=== PATIENT | male | born 1970 | race Hispanic/Latino ===

== ENCOUNTER 2016-05-08 19:10 | Emergency (ER) | payer OTHER ==
[~2016-05-08] VITALS: Ht 165.1 cm; Wt 93.0 kg
[~2016-05-08 19:10] MED LIST: CIPRO500 M1 PO; CIPROFLOXACIN500 MG PO; DEXTROAMP-AMPHE20 M1 PO; FENOFIBRIC ACI135 M1 PO; FLAGYL 25O MG250 M1 PO; FLAGYL500 MG PO; PERCOCET 5-3251 EACH PO; TRAMADOL HCL50 M1 PO; ZOFRAN4 M2 PO
--- NOTE | 2016-05-08 19:56 | ED CARDIAC/CP/PALPITATIONS ---
History of Present Illness General Chief Complaint: Chest Pain Stated Complaint: CP Source: patient Exam Limitations: no limitations Vital Signs & Intake/Output Vital Signs & Intake/Output Vital Signs Date Time Temp Pulse Resp B/P Pulse O2 O2 Flow FiO2 Ox Delivery Rate 05/08 2233 96.6 64 17 141/64 96 Room Air 05/08 2155 96.5 63 18 146/68 96 Room Air 05/09 1999 Room Air 05/08 1924 98.6 72 22 160/105 98 Room Air ED Intake and Output 05/09 0000 05/08 1200 Intake Total Output Total Balance Patient 205 lb Weight Allergies Coded Allergies: NO KNOWN ALLERGIES (10/30/13) Reconcile Medications CIPROFLOXACIN HCL (Ciprofloxacin HCl) 500 MG TABLET 1 TAB PO BID diverticulitis Ciprofloxacin HCl (Cipro) 500 MG TABLET 1 TAB PO BID DIVERTICULITIS Dextroamphetamine/Amphetamine (Dextroamp-Amphet ER 20 MG Cap) 20 MG CAP.ER.24H 1 CAP PO QAM ADHD (Reported) Fenofibric Acid (Choline) (Fenofibric Acid) 135 MG CAPSULE.DR 1 CAP PO DAILY TRIGLYCERIDES (Reported) Metronidazole (Flagyl 25O MG Tablet) 250 MG TABLET 1 TAB PO 4 TIMES/DAY DIVERTICULITIS Metronidazole (Flagyl) 500 MG TABLET 1 TAB PO 4 TIMES/DAY DIVERTICULITIS Ondansetron HCl (Zofran) 4 MG TABLET 1 TAB PO Q6-8P PRN NAUSEA Oxycodone HCl/Acetaminophen (Percocet 5-325 MG Tablet) 5 MG-325 MG TABLET 1 TAB PO TID PRN PAIN Tramadol HCl 50 MG TABLET 1 TAB PO BID PAIN (Reported) Triage Note: PER PT CHEST PAIN X 72 HRS, ASSOC WITH FLUTTERING AND SOME PIEDRA. NO DIAPHORESIS OR NAUSEA. Triage Nurses Notes Reviewed? yes Onset: Abrupt Duration: day(s): (FEW), intermittent Timing: recent history Quality/Severity: moderate, severe, sharp Location: central HPI: 46-year-old male comes into emergency room with complaints of intermittent chest fluttering sensation is been going on for the past few days. Patient reports that the symptoms started this past Friday with some nausea. Patient reports that he's been having some diaphoresis intermittently as well. She reports that starting on Friday he started to get some feelings of fluttering in his chest that would last for seconds and then would BE followed with diaphoresis and shortness of breath and nausea. Denies any actual chest pain. Denies any fever. Nothing seems to make the symptoms better. Exertion makes symptoms worse. Denies any other associated symptoms. (FRANCES DIAZ) Past History Travel History Traveled to [place] past 21 day No Medical History Any Pertinent Medical History? see below for history Neurological: NONE EENT: NONE Cardiovascular: hyperlipidemia Respiratory: asthma, PNEMOTHORAX 2009 Gastrointestinal: diverticulitis Hepatic: NONE Renal: NONE Musculoskeletal: NONE Psychiatric: NONE Endocrine: NONE History of MRSA: No History of VRE: No History of CDIFF: No Surgical History Surgical History: non-contributory Psychosocial History Who do you live with Spouse Services at Home None What is your primary language Hebrew Tobacco Use: Never used Family History Hx Contributory? No (FRANCES DIAZ) Review of Systems Review of Systems Constitutional: Reports: no symptoms. EENTM: Reports: no symptoms. Respiratory: Reports: see HPI. Cardiovascular: Reports: see HPI. GI: Reports: see HPI. Genitourinary: Reports: no symptoms. Musculoskeletal: Reports: no symptoms. Skin: Reports: no symptoms. Neurological/Psychological: Reports: no symptoms. Hematologic/Endocrine: Reports: no symptoms. Immunologic/Allergic: Reports: no symptoms. All Other Systems: Reviewed and Negative (FRANCES DIAZ) Physical Exam Physical Exam General Appearance: well developed/nourished, no apparent distress, alert Head: atraumatic, normal appearance Eyes: Bilateral: normal appearance, EOMI. Ears, Nose, Throat: normal pharynx, normal ENT inspection, hearing grossly normal Neck: normal inspection, full range of motion Respiratory: normal breath sounds, no respiratory distress Cardiovascular: regular rate/rhythm Back: normal inspection Extremities: normal inspection, normal range of motion Neurologic/Psych: awake, alert, oriented x 3, normal gait, normal mood/affect Skin: intact, normal color Core Measures ACS in differential dx? No Severe Sepsis Present: No Septic Shock Present: No All Positive = PERC Ruled Out: Positive: age < 50 years, heart rate < 100 bpm, O2 sat > 94%, no hemoptysis, no hormone use, no prior DVT or PE, no unilateral leg swellin, no surgery/trauma w/ in 4w. Wells Criteria Score: 0 (FRANCES DIAZ) Progress Differential Diagnosis: AMI, aortic dissection, cholecystitis, CHF/pulm edema, hyperkalemia, hyperventilation, intracranial hemorrhage, musculoskeletal pain, myocarditis, pancreatitis, pericarditis, pneumonia, pneumothorax, pulmonary embolism, PUD/GERD, PVCs/PACs, respiratory failure, rib fracture, sepsis, unstable angina, V-fib/V-Tach, WPW syndrome Plan of Care: Orders Procedure Date/time Status TROPONIN LEVEL 05/08 2329 Complete EKG 05/08 2329 Active Telemetry/Driver'S Education Instructor 05/08 1942 Active TROPONIN LEVEL 05/08 1924 Complete COMPREHENSIVE METABOLIC PANEL 05/08 1924 Complete CBC WITHOUT DIFFERENTIAL 05/08 1924 Complete B-TYPE NATRIURETIC PEP (BNP) 05/08 1924 Complete EKG 05/08 1910 Active Laboratory Tests 05/08/162333: Troponin I < 0.01 05/08/161919: Anion Gap 11, Estimated GFR > 60, BUN/Creatinine Ratio 15.0, Glucose 81, Calcium 9.5, Total Bilirubin 0.6, AST 59, ALT 66, Alkaline Phosphatase 68, Troponin I < 0.01, [id number] Pept 80.6, Total Protein 7.3, Albumin 4.3, Globulin 3.0, Albumin/Globulin Ratio 1.4, CBC w Diff NO MAN DIFF REQ, RBC 5.32, MCV 88.8, MCH 29.3, RDW 12.8, MPV 8.4, Gran % 58.3, Lymphocytes % 29.5, Monocytes % 9.6 H, Eosinophils % 2.2, Basophils % 0.4, Absolute Granulocytes 5.7, Absolute Lymphocytes 2.9, Absolute Monocytes 0.9 H, Absolute Eosinophils 0.2, Absolute Basophils 0, PUBS MCHC 33.0 Diagnostic Imaging: Viewed by Me: Radiology Read. Discussed w/RAD: Radiology Read. Radiology Impression: SERVICE DATE: 05/08/16-1924 EXAM TYPE: RAD - XRY-CHEST XRAY, PA AND LATERAL EXAMINATION: XR CHEST CLINICAL INFORMATION: Chest pain COMPARISON: CT abdomen pelvis 01/17/2016. TECHNIQUE: 2 views. FINDINGS: Volume loss of left hemithorax with mediastinal shift to left. This is similar to the CT study 01/17/2016 of abdomen and pelvis. Density at the left lung base is likely due to the cardiac silhouette shifted to the left but underlying infiltrate not excluded. There is soft tissue density the capsule left lung apex which could be effusion or pleural thickening. The right lung is clear. No pulmonary vascular congestion. Fusion of posterior right ribs 6 through 9. IMPRESSION: Volume loss of left hemithorax with mediastinal shift to left. Pleural thickening or effusion at the left lung apex. Left basilar infiltrate not excluded. CT chest could be helpful for further assessment. DICTATED BY: DEE KIM MD DATE/TIME DICTATED:05/08/162031 HUMAN RESOURCES FILE CLERK:COLLIN DATE/TIME TRANSCRIBED:05/08/162031 Initial ED EKG: normal intervals, normal p-waves, normal sinus rhythm, rate (72) , nonspecific ST T wave chg Repeat EKG: unchanged Comments: 05/09/2016 12:26:31 AM Patient clinically looks well. Nontoxic-appearing. Patient reports that his lungs look like this normally. He was born like this. Patient normally has a mediastinal shift. No chest pain here in the emergency room. No signs of dysrhythmia. Patient needs outpatient cardiology workup. 2 unchanged EKGs. 2 normal troponins. No concern for PE . Patient ruled out based on Kings criteria. Patient has been sleeping comfortably in the room upon multiple re- evaluations. Patient understands and agrees with plan of care. (DAVID FLOREZ,FRANCES) Departure Departure Disposition: HOME OR SELF CARE Condition: Stable Clinical Impression Primary Impression: Fluttering sensation of heart Referrals: CORBIN ROMO (PCP/Family) CHERYL ANDERSON,VICKI [place] Additional Instructions: Follow-up with service order clerk provided. You may require a full cardiac workup such as Holter monitor or echocardiogram and stress test. Please return to the emergency room immediately if any chest pain or any worsening symptoms. Please go over all results of today's visit with your primary care doctor. Contact your primary care doctor to let them know you were here in the emergency room. There may be nonspecific findings which may not be related to your visit today here in the emergency room but may require further evaluation and chronic monitoring by your primary care doctor. If you had a laceration today the chance of foreign body always remains. You should follow-up with your primary care doctor for recheck in 3-5 days for a wound check. If you had an x-ray done there is a chance that a fracture could have been missed on initial read and you should follow-up with your primary care doctor for repeat x-rays if symptoms persist. If your blood pressure was elevated here in the emergency room please have rechecked by her primary care doctor within the next 48 hours by your primary care doctor. If you were prescribed a narcotic here in the emergency room or any type of controlled substances you're not allowed to drive while taking this medication or operate any type of heavy machinery. Narcotics can make you feel lightheaded dizziness nausea and can cause constipation. You may need to pick up operator a stool softener. Thank you for choosing [facility] emergency room. Please return to the emergency room immediately if you have any other concerns worsening of symptoms. Departure Forms: Customer Survey General Discharge Information (FRANCES DIAZ) PA/SHUTTLE SPOTTER Co-Sign Statement Statement: ED Attending supervision documentation- [] I saw and evaluated the patient. I have also reviewed all the pertinent lab results and diagnostic results. I agree with the findings and the plan of care as documented in the PA's/SHUTTLE SPOTTER's documentation. [x] I have reviewed the ED Record and agree with the PA's/SHUTTLE SPOTTER's documentation. [] Additions or exceptions (if any) to the PAs/SHUTTLE SPOTTER's note and plan are summarized below: [] (LEXI ANDERSON,MICHAEL Tobin) Critical Care Note Critical Care Note Critical Care Time: non-applicable (FRANCES DIAZ)
[2016-05-08 20:00] LABS: ABSOLUTE BASOPHIL COUNT 0 /CUMM (0.0-0.2); ABSOLUTE EOSINOPHIL COUNT 0.2 /CUMM (0.0-0.7); ABSOLUTE GRANULOCYTE CT 5.7 /CUMM (1.4-6.5); ABSOLUTE LYMPH COUNT 2.9 /CUMM (1.2-3.4); ABSOLUTE MONOCYTE COUNT 0.9 /CUMM (0.10-0.60); BASOPHIL % 0.4 % (0.0-2.0); EOSINOPHIL % 2.2 % (0-5); GRANULOCYTE % 58.3 % (42.2-75.2); HEMATOCRIT 47.3 % (42-52); MEAN CORPUSCULAR HGB 29.3 PG (27.0-31.0); MEAN CORPUSCULAR VOLUME 88.8 FL (80.0-94.0); MEAN PLATELET VOLUME 8.4 FL (7.4-10.4); PLATELET COUNT 256 /CUMM (130-400); RBC DISTRIBUTION WIDTH 12.8 % (11.5-14.5); RED BLOOD CELL CT 5.32 /CUMM (4.70-6.10); WHITE BLOOD CELL COUNT 9.8 /CUMM (4.8-10.8)
--- NOTE | 2016-05-08 20:40 | RADIOLOGY REPORT ---
EXAMINATION: XR CHEST CLINICAL INFORMATION: Chest pain COMPARISON: CT abdomen pelvis 01/17/2016. TECHNIQUE: 2 views. FINDINGS: Volume loss of left hemithorax with mediastinal shift to left. This is similar to the CT study 01/17/2016 of abdomen and pelvis. Density at the left lung base is likely due to the cardiac silhouette shifted to the left but underlying infiltrate not excluded. There is soft tissue density the capsule left lung apex which could be effusion or pleural thickening. The right lung is clear. No pulmonary vascular congestion. Fusion of posterior right ribs 6 through 9. IMPRESSION: Volume loss of left hemithorax with mediastinal shift to left. Pleural thickening or effusion at the left lung apex. Left basilar infiltrate not excluded. CT chest could be helpful for further assessment.
--- NOTE | 2016-05-08 21:49 | CT SCAN REPORT ---
EXAMINATION: CT CHEST WITHOUT CONTRAST CLINICAL INFORMATION: Abnormal chest x-ray. CT chest requested for further assessment. COMPARISON: Chest x-ray today. CT abdomen pelvis 01/17/2016 TECHNIQUE: Multidetector volumetric CT imaging of the chest was done. Axial MIP volume rendering provided. Sagittal and coronal reformatted images were obtained. DLP: 588.47 mGy-cm FINDINGS: LUNGS: There is marked volume loss of the left lung with shift of the mediastinum to the left and hyperexpansion of the right lung across the midline. Within the left lung there is mild bronchial wall thickening with diffuse groundglass and reticular opacity. No dense consolidation. The right lung is clear. MEDIASTINUM: Mediastinum is shifted to the left. No mediastinal mass or lymphadenopathy. No fluid collections. PLEURA: The soft tissue density capping the left lung apex on the chest x-ray today is related to the mediastinal shift and volume loss of left hemithorax with a density of the lung apex related to the mediastinal fat. There is no pleural effusion or significant pleural thickening. AXILLA: No lymphadenopathy. UPPER ABDOMEN: Diffuse fatty change of liver. The adrenal glands are normal. OSSEOUS STRUCTURES: Healed fractures of the posterior right fourth through ninth ribs. IMPRESSION: 1. Marked volume loss of left hemithorax with marked shift of the mediastinal structures to the left. There is mild bronchial wall thickening of left lung bronchi, without bronchiectasis. Within the left lung there are scattered groundglass and reticular opacities. These opacities are likely chronic. No acute infiltrate. No pleural effusion. 2. Diffuse fatty change of liver.
[2016-05-08 22:33] VITALS: BP 141/64
== END 2016-05-09 00:31 ==
LOC: ERH 19:10
PROVIDERS: Emergency Medicine
DX: I49.8 Other specified cardiac arrhythmias (principal); R07.9 Chest pain, unspecified
CPT/HCPCS: 93005; 93010